=== PATIENT | male | born 1955 | race Caucasian/White ===

== ENCOUNTER 2025-04-06 05:19 | Emergency (ER) | payer OTHER, MEDICARE, SELFPAY ==
[2025-04-06] VITALS (8 sets, daily range): BP systolic 110–140; BP diastolic 59–92; PULSE 50–56; RESP 16–20; TEMP 36.3–36.4; O2SAT 95–98; BMI 25.2
--- NOTE | ~2025-04-06 | XR_ITS ---
CLINICAL HISTORY: pain with movement 3 view, pelvis and left hip Comparison: None provided Findings: The bones are intact. No significant arthritic change. The soft tissues are unremarkable. IMPRESSION: No acute findings. This document has been electronically signed by: Krystin Todd MD on 04/06/2025 07:34:55
[2025-04-06] MEDS: Cyclobenzaprine HCl 10 MG TABLET PO (05:57)
--- OUTSIDE RECORDS SUMMARY | 2025-04-06 06:05 | XMS_ITS | Data Portability ---
Author Organization [facility], [id number] Address [address] [place] [address] Assessment No assessment recorded. Plan of Treatment Reminders Order Date Submit Date Provider Last Modified By Organization Details Last Modified Time Details Appointments None recorded. Lab varicella zoster virus IgG Ab, QN, IA, serum 2022 023 [facility]), [address] [place], [address], 3 12:06:06 measles + mumps + rubella virus IgG panel, QN, serum or plasma 2022 023 [facility]), [address] [place], [address], 3 12:06:04 hepatitis B surface Ab, quantitativ e, serum 2022 023 [facility]), [address] [place], [address], 3 12:06:05 Mycobacteri um tuberculosi s stimulated gamma interferon, qual, blood 2022 023 [facility]), [address] [place], [address], 3 16:07:11 Referral None recorded. Procedures None recorded. Surgeries None recorded. Imaging None recorded. Medication Orders None recorded. Patient TargetsNo targets recorded. Patient InstructionsNo instructions recorded. Reason for Referral None Reported. Results Created Date Observation Date Name Description Value Unit Range Abnormal Flag Note LastModifiedBy Organization Detail LastModifiedTime 12/15/19 23 12/16/2022 MEASL ES/MU MPS/R UBELL A IMMUN ITY rubella antibodies, IgG 23.40 index immune >0.99 Non-i mmune <0.90 Equiv ocal 0.90 - 0.99 Immun e >0.99 Not Available [facility] ([facility]) [address] [facility], [place], [address], 12/16/2022 12:06:04 12/15/19 23 12/16/2022 MEASL ES/MU MPS/R UBELL A IMMUN ITY measles antibodies, IgG >300.0 AU/mL immune >16.4 Negat stephanie <13.5 Equiv ocal 13.5 - 16.4 Posit stephanie >16.4 Prese nce of antib odies to Rube[place] la is presu mptiv e evide nce of immun ity excep t when acute infec tion is suspe cted. Not Available [facility] ([facility]) [address] [facility], [place], [address], 12/16/2022 12:06:04 12/15/19 23 12/16/2022 MEASL ES/MU MPS/R UBELL A IMMUN ITY mumps abs, IgG 100.0 AU/mL immune >10.9 Negat stephanie <9.0 Equiv ocal 9.0 - 10.9 Posit stephanie >10.9 A posit stephanie resul t gener ally indic ates past expos ure to Mumps virus or previ ous vacci natio n. Not Available [facility] ([facility]) [address] [facility], [place], [address], 12/16/2022 12:06:04 12/15/1912/16/2022 HEPAT ITIS B SURF AB QUANT hepatitis B surf Ab quant 167.2 mIU/m L immuni ty>9.9 Statu s of Immun ity Anti- HBs Level ----- ----- ----- --- ----- ----- ---- Incon siste nt with Immun ity 0.0 - 9.9 Consi stent with Immun ity >9.9 Not Available [facility] ([facility]) [address] [facility], [place], [address], 12/16/2022 12:06:05 12/15/19 23 12/16/2022 VARIC YURIY- ZOSTE R V AB, IGG varicella zoster IgG >4000 index immune >165 Negat stephanie <135 Equiv ocal 135 - 165 Posit stephanie >165 A posit stephanie resul t gener ally indic ates expos ure to the patho gen or admin istra tion of speci fic immun oglob ulins , but it is not indic ation of activ e infec tion or stage of disea se. Not Available [facility] ([facility]) [address] [facility], [place], [address], 12/16/2022 12:06:06 12/15/19 23 12/17/2022 QUANT IFERO N-TB GOLD PLUS quantiferon incubation INCUBA TION PERFOR MED. Not Available [facility] ([facility]) [address] [facility], [place], [address], 12/17/2022 16:07:11 12/15/19 23 12/17/2022 QUANT IFERO N-TB GOLD PLUS quantiferon criteria COMMEN T Quant iFERO N-TB Gold Plus is a quali tativ e indir ect test for M tuber culos is infec tion (incl uding disea se) and is inten ded for use in conju nctio n with risk asses sment , radio graph y, and other medic al and diagn ostic evalu ation s. The Quant iFERO N-TB Gold Plus resul t is deter mined by subtr actin g the Nil value from eithe r TB antig en (Ag) value . The Mitog en tube serve s as a contr ol for the test. Not Available [facility] ([facility]) [address] [facility], [place], [address], 12/17/2022 16:07:11 12/15/19 23 12/17/2022 QUANT IFERO N-TB GOLD PLUS quantiferon TB1 Ag value 0.01 IU/mL Not Available [facility] ([facility]) [address] [place], [address], 12/17/2022 16:07:11 12/15/19 23 12/17/2022 QUANT IFERO N-TB GOLD PLUS quantiferon TB2 Ag value 0.01 IU/mL Not Available [facility] ([facility]) [address] [facility], [place], [address], 12/17/2022 16:07:11 12/15/19 23 12/17/2022 QUANT IFERO N-TB GOLD PLUS quantiferon nil value 0.01 IU/mL Not Available [facility] ([facility]) [address] [place], [address], 12/17/2022 16:07:11 12/15/19 23 12/17/2022 QUANT IFERO N-TB GOLD PLUS quantiferon mitogen value >10.00 IU/mL Not Available [facility] ([facility]) [address] [facility], [place], [address], 12/17/2022 16:07:11 12/15/19 23 12/17/2022 QUANT IFERO N-TB GOLD PLUS quantiferon- TB gold plus NEGATI VE negati ve No respo nse to M zeina carrillo is antig ens detec demi. Infec tion with M zeina carrillo is is unlik leeanne, but high risk indiv idual s shoul d be consi dered for addit ional testi ng (ATS/ IDSA/ CDC Clini vito Pract ice Guide lines , 2017) . The refer ence range is an Antig en minus Nil resul t of <0.35 IU/mL . Chemi lumin escen ce immun oassa y metho dolog y Not Available [facility] ([facility]) [address] [place], [address], 12/17/2022 16:07:11 Result Notes None recorded. Medical Equipment None Reported. Vitals None Recorded Social History None recorded. Functional Status None recorded. Mental Status None recorded. Family History Nothing Reported. Medical History No medical history recorded. Immunizations Vaccine Type Date Status Note Provider Scotty e and Address Organization Details Recorded Time Tdap 12/15/2022 completed Macho Ellis NP [address] [place], [address], [place] - [facility] 12/15/2022 09:24:23 Past Encounters Encounter ID Performer Location Encounter Start Date Encounter Closed Date Diagnosis/Indication Diagnosis SNOMED-CT Code Diagnosis ICD10 Code Diagnosis [place] [id number] [place] [address] [address] 12/15/2022 08:08:48 12/15/2022 09:37:37 History and physical examination, pre-employment 432675332 Z02.1 History an d physical examination, occupation [id number] Z02.1 Health Concerns Section Related Observation LastModified by Organization Detai ls LastModified Time None Recorded Concern Status LastModified by Organization Details LastModified Time None Recorded Advance Directives Directive None Recorded Payers Insurance Date Sequence Insurance Name Policy Number Policy Gary Covered Member ID Gary Member ID Guarantor Name 12/15/2022 OC-ESCREEN Heath Oden [id number] Heath Oden
--- NOTE | 2025-04-06 07:06 | PC.NURSE ---
Addendum entered by Vangie Beaver RN 04/06/25 07:08: pt had LLE pain not RLE as previously documented in this note. Original Note: patient a&ox3, vss, rr equal/non labored, pt c/o RLE pain /, on prior shift pt was medicated which he states he has not had much relief from. xray was performed-awaiting report, call reece within reach, plan of care ongoing/awaiting results/provider.
--- NOTE | 2025-04-06 07:38 | ED.GENADULT ---
HPI - General Adult General Chief complaint: Extremity Injury, Lower Stated complaint: 07/28 Left Hip and knee pain Time Seen by Provider: 04/06/25 07:30 Source: patient Mode of arrival: EMS Limitations: no limitations History of Present Illness HPI narrative: this is a 69 years old the patient presented to emergency department via ambulance with a chief complaint of left hip pain left thigh pain he states that he did some stretching exercise 2 days ago the pain is localized in the left hip and left thigh. He stated that he was in [place] about a couple of month ago he had the same problem got better with physical therapy, he is anticoagulated with Xarelto Onset (ago): hour(s) (3) Location: lower extremity (left hip) Radiation: non-radiation Severity: moderate Quality: burning Pain Consistency: constant Relieving factors: none Associated symptoms: denies other symptoms Related Data Previous Rx's ?Medication ?Instructions ?Recorded acetaminophen 500 mg tablet 1,000 mg (2 x 500 mg) PO QID PRN 04/06/25 (Tylenol Extra Strength) pain #30 tabs cyclobenzaprine 10 mg tablet 10 mg PO TID PRN muscle spasm #14 04/06/25 tabs oxycodone 5 mg tablet 5 mg PO Q6H PRN pain #15 tabs 04/06/25 Allergies Allergy/AdvReac Type Severity Reaction Status Date / Time No Known Allergies Allergy Verified 04/06/25 05:43 Review of Systems Constitutional: Constitutional: Reports no additional constitutional complaints ENT: Reports system reviewed and no additional complaints, except as documented Cardiovascular: Cardiovascular: Reports no additional cardiovascular complaints Respiratory: Respiratory: Reports no additional respiratory complaints COUNT INCLUDES THE [facility] Past Medical History COUNT INCLUDES THE [facility] Narrative: atrial fibrillation anticoagulated with Xarelto Social History Social History Alcohol intake: current Alcohol intake frequency: 3 or more drinks per day Smoked in Last 30 Days: No Use of substances other than those prescribed or required for medical reasons: No Advance Directives: No Do you have a plan to hurt others: No Plan Physical Exam ED Vital Signs: Vital Signs - 24 hr 04/06/25 05:24 04/06/25 05:44 04/06/25 06:43 Temperature 97.5 F 97.5 F 97.4 F Pulse Rate 53 53 51 Respiratory Rate 20 20 18 Blood Pressure 132/73 132/73 121/66 Pulse Oximetry 96 96 96 Oxygen Delivery Method Room Air Room Air Room Air 04/06/25 08:21 04/06/25 10:16 04/06/25 11:30 Temperature 97.6 F 97.4 F Pulse Rate 53 50 50 Respiratory Rate 16 16 Blood Pressure 115/59 L 110/69 110/69 Pulse Oximetry 96 95 95 Oxygen Delivery Method Room Air Room Air 04/06/25 11:32 Temperature 97.3 F Pulse Rate 55 Respiratory Rate 16 Blood Pressure 121/80 Pulse Oximetry 97 Oxygen Delivery Method Room Air BMI result Body Mass Index 25.2 patient looks well not toxic-appearing comfortable in the stretcher Const General: cooperative Nutritional Appearance: average body habitus Orientation/consciousness: patient oriented x3 HENMT Head: Yes normal to inspection General nose exam: Normal external nose present Face and sinus: Yes normal facial exam Mouth: Normal oral and palatal mucosa present Neck Neck: Yes normal visual inspection and Yes full ROM Chest Chest palpation & inspection: normal inspection of the chest Resp Effort & Inspection: normal respiratory effort Auscultation: clear to auscultation bilaterally Cardio Jugular venous distension: no JVD Rate: regular rate Rhythm: regular rhythm GI Inspection: Yes normal to inspection Palpation (GI): Soft to palpation, not firm, nontender and no guarding Skin General skin exam: no rashes or lesions noted Lesions: no lesions Rashes: no rashes Neuro General: patient oriented x3 Cranial nerves: Yes CN's II-XII intact bilaterally Extrem Other: examination of the left lower extremity has good pulses in the feet, range of motion of the left hip is full no deformity noted Course Reevaluation(s) Reevaluation #1: On re-examination he is doing better, initially was seen by Physical therapy who recommended inpatient rehab, however the patient does not want to go to inpatient rehab he wants to be discharged you will do outpatient rehab. I had long discussion with him his girlfriend the patient wants to go home.. He will call his primary care physician for PT referral also I will give him the name of the orthopedic surgeon for follow-up. His x-ray is negative, I do not think with need to do an ultrasound he is on Xarelto DVT will be really unlikely he has good peripheral perfusion so I do not think he has vascular insufficiency Time: 12:34 Reevaluation #2: Doing better the patient is able to ambulate safely at this time with a antalgic gait but able to ambulate Time: 12:42 Medications Administered Discontinued Medications Generic Name Dose Route Start Last Admin Trade Name Meenu PRN Reason Stop Dose Admin Acetaminophen 975 mg 04/06/25 07:37 04/06/25 08:06 Acetaminophen 325 Mg Tablet PO 04/06/25 07:38 975 mg ONCE ONE Administration Cyclobenzaprine HCl 10 mg 04/06/25 05:51 04/06/25 05:57 Cyclobenzaprine Hcl 10 Mg Tablet PO 04/06/25 05:52 10 mg ONCE ONE Administration Diazepam 5 mg 04/06/25 10:58 04/06/25 11:11 Diazepam 5 Mg Tablet PO 04/06/25 10:59 5 mg ONCE ONE Administration Oxycodone HCl 5 mg 04/06/25 07:37 04/06/25 08:06 Oxycodone Hcl Immed Release 5 Mg Tablet PO 04/06/25 07:38 5 mg ONCE ONE Administration Oxycodone HCl 5 mg 04/06/25 12:04 04/06/25 12:10 Oxycodone Hcl Immed Release 5 Mg Tablet PO 04/06/25 12:05 5 mg ONCE ONE Administration Prednisone 40 mg 04/06/25 12:04 04/06/25 12:10 Prednisone 20 Mg Tablet PO 04/06/25 12:05 40 mg ONCE ONE Administration Medical Decision Making Medical Decision Making MDM Narrative: patient is here with left hip pain left type pain atraumatic. I do not think he has a DVT is on Xarelto so we will be really unlikely so I do not think we need to do an ultrasound. He has good pulses in the feet I do not think he has peripheral vascular disease. I do not think he has a fracture the pain is atraumatic. Most likely musculoskeletal. We will give him oxycodone we can not use anti-inflammatory because on Xarelto 12:35 seen by PT recommended inpatient rehab over the patient declined inpatient rehab he will go home he will follow-up with ortho, he will call his primary care physician for physical therapy referral. He stated that he had this problem before got better with the physical therapy. Differential Diagnosis Differential Diagnoses: The differential diagnosis associated with the presentation includes Admission/Observation Consideration of admission/observation: Escalation of care including admission/observation considered Lab Data MDM Lab Attestation statement: I reviewed the patient's lab results. Labs: Lab Results 04/06/25 Range/Units 11:31 Influenza Type A (PCR) NEGATIVE (Negative) Influenza Type B (PCR) NEGATIVE (Negative) RSV RNA Qual (PCR) NEGATIVE (Negative) SARS-CoV-2 RNA (RT-PCR) NEGATIVE (Negative) Independent Interpretation I performed an independent interpretation of an: Plain X-Ray Interpretation: x-ray was reviewed interpreted by me as no Radiology Impression Discussion of test interpretation with radiology: I have reviewed the radiologist's reading. Independent Historian Clinical information obtained from an independent historian. History obtained from or confirmed by: Other (Girlfriend) Prescription Management I considered prescription management with: Pain Medication Discharge Plan Discharge Clinical Impression: Acute pain of left hip Patient Disposition: Home, Self-Care Instructions: Hip Pain (ED) Additional Instructions: As we discussed call ortho for follow-up also call your primary care physician for physical therapy with referral. You could take Tylenol (acetaminophen) 1 g every 6 hour, a we will give you a prescription for oxycodone as well and Flexeril. Return to the emergency room if you worse Prescriptions: New acetaminophen [Tylenol Extra Strength] 500 mg tablet 1,000 mg PO QID PRN (Reason: pain) Qty: 30 0RF cyclobenzaprine 10 mg tablet 10 mg PO TID PRN (Reason: muscle spasm) Qty: 14 0RF oxycodone 5 mg tablet 5 mg PO Q6H PRN (Reason: pain) Qty: 15 0RF Rx Instructions: partial filing upon pt request; Partial Fill upon patient request. Referrals: Bipin Krueger MD [Physician, Orthopedics] - 04/10/25 Print Language: Japanese
[2025-04-06] MEDS: oxyCODONE HCl Immed Release 5 MG TABLET PO ×2 (08:06→12:10)
[2025-04-06] MEDS: Acetaminophen 325 MG TABLET 975 MG PO (08:06)
--- NOTE | 2025-04-06 10:43 | PC.NURSE ---
per request of provider, pt was asked to attempt to ambulate, upon standing patient stated he had 9/10 pain which increased more with attempts to ambulate, pt could only ambulate a few steps and did so while holding onto the supply cart in the room. provider notified, will be putting in a PT consult and additional medication for pt, will medicate when order is available.
[2025-04-06] MEDS: diazePAM 5 MG TABLET PO (11:11)
--- NOTE | 2025-04-06 11:11 | PC.NURSE ---
pt medicated for pain per order
--- NOTE | 2025-04-06 11:48 | MHC.CM.ED ---
Received case management consult from Dr Joiner. Patient came to the ER due to left hip and knee pain. Work up essentially negative. Physical therapy eval completed. Short term rehab is recommended. Met with patient and sig other, Britni, in regards to discharge planning. Patient lives alone, ambulates independently and had no services prior to coming to the ER. Patient states PCP is Dr Shaikh in [place]. Patient and Britni originally agreeable to STR. However, requested to speak to Dr Joiner about what is causing Dr Joiner's pain. Dr Joiner met with patient and felt patient did not require STR. Patient ambulated in ER cordero by Dr Joiner. Patient requesting to go home with outpatient rehab. Patient will need to reach out to his PCP to have this arranged. Patient, Vangie Ryder RN and Dr Joiner aware. Continue to monitor for d/c needs.
[2025-04-06] MEDS: predniSONE 20 MG TABLET 40 MG PO (12:10)
--- NOTE | 2025-04-06 12:12 | PC.NURSE ---
pt medicated for continued 8/10 pain.
[2025-04-06 12:22] LABS: Influenza A PCR NEGATIVE (Negative); Influenza B PCR NEGATIVE (Negative); Resp Syncy Virus RNA Qual PCR NEGATIVE (Negative); SARS COV2 PCR INHOUSE NEGATIVE (Negative)
== END 2025-04-06 13:26 | disposition home or self-care (01) ==
PROVIDERS: Emergency Provider Emergency Medicine
DX: M25.552 Pain in left hip (principal); M25.562 Pain in left knee; R26.81 Unsteadiness on feet; Z03.818 Encounter for observation for suspected exposure to other biological agents ruled out; Z79.01 Long term (current) use of anticoagulants; Z79.899 Other long term (current) drug therapy
CPT/HCPCS: 0241U; 73502; 97162; 99284

== ENCOUNTER → 2025-04-06 05:55 | Outpatient (BNV) | payer OTHER, MEDICARE, SELFPAY | PROVIDERS: Emergency Provider Emergency Medicine; Visit Provider Radiology Diagnostic Radiology | DX: M25.552 Pain in left hip (principal) | CPT/HCPCS: 73502 ==

== ENCOUNTER 2025-04-08 11:02 | Emergency (ER) | payer OTHER, MEDICARE, SELFPAY ==
[2025-04-08 11:22] VITALS: BP 122/79; PULSE 68; RESP 16; TEMP 36.3; O2SAT 99; BMI 27.8
--- NOTE | 2025-04-08 11:29 | ED_ITS ---
HPI - General Adult General Chief complaint: General Medical Stated complaint: l hip pain Time Seen by Provider: 04/08/25 11:09 Source: patient Mode of arrival: ambulatory Limitations: no limitations History of Present Illness ED Provider: Elena Medellin NP HPI narrative: Patient is a 69-year-old male with past medical history of atrial fibrillation anticoagulated on Xarelto who presents emergency department for evaluation of left hip pain. He reports initial injury approximately 1 year ago after some stretching exercises, this was in [place] he did physical therapy and had improvement. However, a few days ago he thinks he might have ?overdid it? who was working on his car and did some stretching. He began experiencing pain again in his left hip feels shooting pain into his thigh. States he was seen in the emergency department a couple of days ago, was given prescriptions but she has taken and they ?take the edge off? but still continues to have pain so he presented back to emergency department today. He denies any numbness or tingling to the extremity. No redness or swelling. History atrial fibrillation he however is anticoagulated on Xarelto and states he has been compliant with this. Denies associated back pain. No urogenital symptoms. No groin pain. Related Data Previous Rx's ?Medication ?Instructions ?Recorded acetaminophen 500 mg tablet 1,000 mg (2 x 500 mg) PO Q ID PRN 04/06/25 (Tylenol Extra Strength) pain #30 tabs cyclobenzaprine 10 mg tablet 10 mg PO TID PRN muscle s pasm #14 04/06/25 tabs oxycodone 5 mg tablet 5 mg PO Q6H PRN pain #15 tab s 04/06/25 lidocaine 5 % topical patch 1 patch topical DAILY #30 ea 04/08/25 prednisone 20 mg tablet 40 mg (2 x 20 mg) PO DAILY # 10 tabs 04/08/25 Allergies Allergy/AdvReac Type Severity Reaction Status Date / Time No Known Allergies Allergy Verified 04/08/25 11:31 Review of Systems Review of Systems: Yes all other systems are reviewed and are negative PMFSH Past Medical History Attestation statement: The following information was validated with the patient. Source: old records reviewed Social History Social History Alcohol intake: current Alcohol intake frequency: holidays/special occasions only Alcohol type: beer Physical Exam ED Vital Signs: Vital Signs - 24 hr 04/08/25 11:22 Temperature 97.4 F Pulse Rate 68 Respiratory Rate 16 Blood Pressure 122/79 Pulse Oximetry 99 Oxygen Delivery Method Room Air BMI result Body Mass Index 27.8 Appearance: Alert.?Oriented to person, place and time. No acute distress.?Normal affect. Eyes: Pupils equal, round and reactive to light.? ENT: Pharynx normal.?? Neck: Normal inspection.? Neck supple.?? CVS: Heart sounds normal. Normal heart rate and rhythm.? Pulses normal.?? Respiratory: No respiratory distress.? Lung sounds clear to auscultation bilaterally?? Abdomen: Soft and non-tender. Normoactive bowel sounds. Skin: Skin warm and dry.? Normal skin color.?? Extremities: No lower extremity edema.? No calf ttp. 2+DP/PT pulse bilaterally. Full active range of motion to the left hip. No rashes or lesions. Neuro: Moves all extremities spontaneously. Sensation intact bilaterally. . No focal neuro deficits. Ambulates with antalgic gait. Medical Decision Making Medical Decision Making MDM Narrative: Patient is a 69-year-old male with past medical history of atrial fibrillation anticoagulated on Xarelto presenting for re-evaluation of left hip pain as per HPI. Onset was a few days ago he believes started after working on his car/stretching. Was seen in the emergency department on 04/06/2025, had XR of the hip and pelvis obtained at that time without acute findings. He was given a prescription for Tylenol, cyclobenzaprine, and oxycodone which he states has brought the pain down to some degree but pain still persists bring him back to emergency department today. When he was previously seen there was recommendation from physical therapy for inpatient rehab he however declined in elected for discharge home as he had preference for outpatient physical therapy, he does remain consistent at this time that he has no interest in inpatient rehab. He unfortunately has yet to call his primary care provider to have referral for physical therapy. He did not call the orthopedic office for follow-up either. On examination he has no clinical evidence to suggest DVT as etiology for symptoms and given he is anticoagulated on Xarelto I think this is less likely. Extremities neurovascularly intact distally, no signs of ED, or symptoms to suggest arterial occlusion. Unfortunately given his uses Xarelto he is unable to take NSAIDs, additionally reviewed a course of oral corticosteroids while he is awaiting outpatient follow-up, he received a single dose of prednisone 40 mg on 04/06/2025. Would not recommend increasing dosage of muscle relaxant/changing this nor change to his opiate medication as this time. Differential Diagnosis Differential Diagnoses: The differential diagnosis associated with the presentation includes (See narrative above) External Record Review External record reviewed: Prior outpatient radiology (See narrative above) Prescription Management I considered prescription management with: Pain Medication (See narrative above) Discharge Plan Discharge Clinical Impression: Acute pain of left hip Patient Disposition: Home, Self-Care Instructions: Hip Pain (ED) Additional Instructions: Please be certain that you are applying ice/heat to the area of pain on your hip for 10-15 minutes 4-6 times daily. Topical lidocaine patch may be of benefit to the area of the knees pain, this may be left on for 12 hours and remove for 12 hour period to prevent skin irritation. When you were seen in the emergency department 04/06/2025 you were given prescription for cyclobenzaprine a muscle relaxant as well as oxycodone an opioid analgesic medication. I do not recommend any changes to these medications at this time, you may take these as previously prescribed. You may benefit from a course of oral steroids to help decrease the inflammation as you were unable to take NSAIDs with your Xarelto. I have sent a prescription for prednisone to the pharmacy this should be taken daily with food to prevent stomach upset. As discussed, it is most important that you follow-up with your primary care doctor on Thursday so that you may discussed with them a referral for physical therapy, additionally you were previously provided contact information for the orthopedic office associated with this hospital so that you may arrange for outpatient follow-up. Prescriptions: New lidocaine 5 % adhesive patch,medicated 1 patch topical DAILY Qty: 30 0RF Rx Instructions: leave on most painful area for up to 12 hrs prednisone 20 mg tablet 40 mg PO DAILY Qty: 10 0RF No Action acetaminophen [Tylenol Extra Strength] 500 mg tablet 1,000 mg PO QID PRN (Reason: pain) Qty: 30 0RF cyclobenzaprine 10 mg tablet 10 mg PO TID PRN (Reason: muscle spasm) Qty: 14 0RF oxycodone 5 mg tablet 5 mg PO Q6H PRN (Reason: pain) Qty: 15 0RF Rx Instructions: partial filing upon pt request; Partial Fill upon patient request. Referrals: Jovanni Oviedo MD [Primary Care Provider, Family Practice] Print Language: Vincentian
[2025-04-08 11:30] VITALS: BP 129/93; PULSE 64; RESP 14; O2SAT 95; BMI 20.4
[2025-04-08 11:31] VITALS: BP 129/93; PULSE 64; RESP 14; O2SAT 95
--- NOTE | 2025-04-08 11:33 | PC.NURSE ---
PAtient A&O x 3. Patient presents to ED c/o left hip pain, radiates down left leg rated 6/10. Patient was seen recently at [facility] for the same reason according to patient. Denies injury, +CMS +ROM. VSS up to date. Provider in to see patient. Plan of care on going.
[2025-04-08 12:26] VITALS: BP 129/93; PULSE 64; RESP 14; TEMP 36.6; O2SAT 95
== END 2025-04-08 12:27 | disposition home or self-care (01) ==
PROVIDERS: Emergency Provider Emergency Medicine; PCP Family Medicine
DX: M25.552 Pain in left hip (principal); I48.91 Unspecified atrial fibrillation; Z79.01 Long term (current) use of anticoagulants
CPT/HCPCS: 99283; 99284

== ENCOUNTER 2025-05-24 10:36 | Outpatient (RCR) | payer MEDICARE, OTHER, SELFPAY | END 2025-06-05 11:18 | disposition home or self-care (01) | LOC: HO.PT 10:36 | PROVIDERS: PCP Family Medicine; Visit Provider Internal Medicine | DX: M25.552 Pain in left hip (principal) | CPT/HCPCS: 97110; 97161; 97530 ==